=== PATIENT | female | born 1965 | race Caucasian/White ===

== ENCOUNTER 2020-07-21 20:10 | Inpatient (IN) | payer OTHER, SELFPAY ==
[~2020-07-21] VITALS: Ht 171.4 cm; Wt 92.1 kg
[2020-07-21 20:25] VITALS: Ht 171.4 cm; Wt 92.1 kg
[2020-07-21 20:57] LABS: BASOPHIL % 0.4 % (0.2-1.3); PLATELET COUNT 188 x10^3mcL (179-408); RED CELL DISTRIBUTION WIDTH 13.4 % (12.3-17.7)
[2020-07-21 21:09] LABS: CALCIUM 8.2 mg/dL (8.5-10.1); CARBON DIOXIDE 26.1 mmol/L (21-32); CHLORIDE SERUM 108 mmol/L (98-107); GFR1 > 60 mL/min; GLUCOSE SERUM 107 mg/dL (74-106); SODIUM SERUM 143 mmol/L (136-145)
[2020-07-21 21:13] LABS: ALBUMIN 3.5 g/dL (3.4-5.0); ALKALINE PHOSPHATASE 92 U/L (46-116); ALT/SGPT 71 U/L (14-59); AST/SGOT 45 U/L (15-37); BILIRUBIN TOTAL 0.2 mg/dL (0.20-1.00); TOTAL PROTEIN, SERUM 6.6 g/dL (6.4-8.2)
[2020-07-21] MEDS ORDERED: AMLODIPINE BESY10 M2 PO (22:33)
[2020-07-21] MEDS ORDERED: ANTIFUNGAL14 G1 TOP (22:33)
[2020-07-21] MEDS ORDERED: MELATONIN1 MG PO (22:34)
[2020-07-21] MEDS ORDERED: ACETAMINOPHEN325 M3 PO (22:35)
[2020-07-21] MEDS ORDERED: NITROGLYCERIN0.4 MG SL ×2 (22:35→22:36)
[2020-07-21] MEDS ORDERED: ANUSOL-HC25 MG/SUPP RC (22:37)
[2020-07-21] MEDS ORDERED: TREXIMET1 TAB PO (22:38)
[2020-07-21] MEDS ORDERED: CLOTRIMAZOLE AF TOP (22:39)
[2020-07-21] MEDS ORDERED: XOPENEX HF0.045 MG/1 INH (22:41)
[2020-07-21] MEDS ORDERED: D3 + K2 DOTS 11 EACH PO (22:42)
[2020-07-21] MEDS ORDERED: KEN10 TOP (22:42)
[2020-07-21] MEDS ORDERED: FLUOXETINE60 MG PO (22:43)
[2020-07-21] MEDS ORDERED: KRISTALOSE20 GM PO (22:43)
[2020-07-21] MEDS ORDERED: HYDROXYZIN10 MG/5 M2 PO (22:44)
[2020-07-21] MEDS ORDERED: ACYCLOVIR400 MG PO (22:44)
[2020-07-21] MEDS ORDERED: COLACE100 MG PO (22:45)
[2020-07-21] MEDS ORDERED: ACID REDUCER20 MG PO (22:45)
[2020-07-21] MEDS ORDERED: AIRDUO RESPICL1 EAC1 INH (22:46)
[2020-07-21] MEDS ORDERED: ADULT LOW DOSE81 MG PO (22:46)
[2020-07-21] MEDS ORDERED: TOPROL XL25 MG PO (22:46)
[2020-07-21 23:56] LABS: CHOLESTEROL/HDL RATIO 4.2; MAGNESIUM 1.9 mg/dL (1.8-2.4)
[2020-07-22 01:29] VITALS: BP 141/76
[2020-07-22 04:30] VITALS: BP 98/54
[2020-07-22 08:05] VITALS: BP 117/57
[2020-07-22 08:14] LABS: BASOPHIL % 1.4 % (0.2-1.3); PLATELET COUNT 163 x10^3mcL (179-408); RED CELL DISTRIBUTION WIDTH 13.4 % (12.3-17.7)
[2020-07-22 08:23] LABS: CALCIUM 8.7 mg/dL (8.5-10.1); CARBON DIOXIDE 26.9 mmol/L (21-32); CREATININE SERUM 1.1 mg/dL (0.6-1.0); POTASSIUM SERUM 4.3 mmol/L (3.5-5.1)
[2020-07-22 08:24] LABS: rbc morphology (normal/abnorm) NORMAL (NORMAL)
[2020-07-22 12:00] VITALS: BP 100/55
[2020-07-22 17:05] VITALS: BP 112/76
[2020-07-22 18:06] LABS: microscopic required? NO
[2020-07-22 18:22] LABS: urine erythrocyte NEGATIVE (NEGATIVE)
[2020-07-22 18:28] LABS: AMPHETAMINE QUAL UR NONE DETECTED (See below)
[2020-07-22 20:33] VITALS: BP 116/59
[2020-07-23 05:49] VITALS: BP 122/80
[2020-07-23 07:57] VITALS: BP 107/67
[2020-07-23 11:44] VITALS: BP 108/66
[2020-07-23 12:03] VITALS: BP 108/66
== END 2020-07-23 15:29 | DRG 313 ==
LOC: ED 20:10 → DU 21:34 → MU 07-22 23:13
PROVIDERS: Emergency Medicine; ADMIT Internal Medicine; ATTEND Internal Medicine
DX: R07.89 Other chest pain (principal); J96.00 Acute respiratory failure, unspecified whether with hypoxia or hypercapnia; M79.7 Fibromyalgia; I25.10 Atherosclerotic heart disease of native coronary artery without angina pectoris; I10 Essential (primary) hypertension; Z88.5 Allergy status to narcotic agent; Z88.8 Allergy status to other drugs, medicaments and biological substances; E78.5 Hyperlipidemia, unspecified; J44.9 Chronic obstructive pulmonary disease, unspecified; K21.9 Gastro-esophageal reflux disease without esophagitis; F41.9 Anxiety disorder, unspecified; F32.9 Major depressive disorder, single episode, unspecified; Z20.822 Contact with and (suspected) exposure to COVID-19; Z90.710 Acquired absence of both cervix and uterus; G89.4 Chronic pain syndrome
CPT/HCPCS: C9113; G0378; J3010; U0003